=== PATIENT | male | born 1990 | race Caucasian/White ===

== ENCOUNTER 2017-01-11 19:04 | Emergency (ER) | payer MEDICAID ==
[~2017-01-11] VITALS: Ht 182.9 cm; Wt 81.8 kg
[~2017-01-11 19:04] MED LIST: NOMEDS XX; PREDNISONE 20MG20 MG PO; TYLENOL W/CODEI1 TA2 PO
--- OUTSIDE RECORDS SUMMARY | 2017-01-11 19:10 | External Medical Summary Rpt | CCD ---
Author Author , BRIGID CARTER Address Unknown Phone [email or web address] Purpose Continuity of Care Document - 04-25-2016 through 2016 Medications Na ND Rx Da Fi Fi Am Da Di Ph RX Ph St me C No te ll ll ou ys ag ar # ys at rm s nt no ma ic us Or Da si cy ia de te s n re d HY 53 01 02 [address] 74 -1 -0 .0 00 ME ti OC 60 1- 3- 00 02 TO ve OD 14 20 20 01 WN ON 50 17 17 25 E- 1 76 PH IB AR UP MA RO CY FE N OF 7. 5- CY 20 NT 0 HI AN A
--- OUTSIDE RECORDS SUMMARY | 2017-01-11 19:10 | External Medical Summary Rpt | CCD ---
Author Author , BRIGID CARTER Address Unknown Phone [email or web address] Purpose Continuity of Care Document - 04-25-2016 [...]
--- OUTSIDE RECORDS SUMMARY | 2017-01-11 19:11 | External Medical Summary Rpt | CCD ---
Author Author , RAUL CARTRE Address Unknown Phone [email or web address] Immunization Name Date Rout CVX Reac Dose Comm Prov Is Faci e tion ent ider Refu lity Give sed n Hep 03-0 43 999 Hist H159 No H159 B, 6-20 oric A A adul 14 al t Info rmat ion - Sour ce Unsp ecif ied Hep 01-2 43 999 Hist H159 No H159 B, 3-20 oric A A adul 14 al t Info rmat ion - Sour ce Unsp ecif ied Hep 11-2 8 999 Hist H157 No H157 B, 5-20 oric ped/ 03 al adol Info rmat ion - Sour ce Unsp ecif ied Hep 09-1 8 999 Hist H157 No H157 B, 6-20 oric ped/ 03 al adol Info rmat ion - Sour ce Unsp ecif ied Td 09-1 9 999 Hist H157 No H157 (layne 6-20 oric lt), 03 al Info adso rmat rbed ion - Sour ce Unsp ecif ied Hep 08-1 8 999 Hist H157 No H157 B, -20 oric ped/ 03 al adol Info rmat ion - Sour ce Unsp ecif ied MMR 08-1 3 999 Hist H157 No H157 -20 oric 03 al Info rmat ion - Sour ce Unsp ecif ied
--- OUTSIDE RECORDS SUMMARY | 2017-01-11 19:11 | External Medical Summary Rpt ---
Author Author RAUL Echevarria, RAUL [employer] Address Unknown Phone Unavailable
--- OUTSIDE RECORDS SUMMARY | 2017-01-11 19:11 | External Medical Summary Rpt | CCD ---
Author Author , RAUL CARTER Address Unknown Phone [email or web address] Immunization Name Date Rout CVX Reac Dose [...]
--- OUTSIDE RECORDS SUMMARY | 2017-01-11 19:11 | External Medical Summary Rpt ---
Author Author RAUL Echevarria, RAUL [facility] [employer] Address Unknown Phone Unavailable
--- NOTE | 2017-01-11 19:30 | Urgent Treatment Center Report ---
History of Present Issue Date/Time Seen by Provider 01/11/171913 Visit Reason Pt arrived:Walked Presenting Problem:PT STATES HE HAS BEEN ITCHING ALL OVER FOR A WK NOW AND BELIEVES IT MIGHT BE FROM HAULING WALNUTS Location if Accident: Onset of symptoms date/time:/ or onset unknown for:MEDICAL HX UNKNOWN Have you (or family members/close friends) recently traveled outside the [place]? N If Yes, where/when: Have you had exposure to infectious disease within the past month? TB? Other? Specify: c/o itching all over but primarily bilateral hand/arms the worse x around one week. Initially noticed a "blistery type" rash and thought poison clark but that resolved w/ applying bactin. No improvement in itching with frequent benadryl PO. Symptoms didn't start until after patient started collecting and hauling walnuts. Has never done this before. Denies any other possibly new contacts at home, new foods, new medications. No throat swelling, difficulty breathing. "just itching". pt has not been wearing gloves or long sleeves and tawanda hands and arms are stained from walnuts. Source patient Exam Limitations no limitations ALLERGIES Coded Allergies: NO KNOWN ALLERGIES (08/04/13) Home Medications Active Scripts APAP 300MG W/CODEINE 30MG (Acetaminophen-Cod #3 Tablet) 1 TAB PO Q4HP PRN pain #10 TAB Prov: 11/13/13 History Medical History General Angina: No [place]: No Hypertension? No Hyperlipidemia? No CHF? No COPD? No Asthma? No Anemia? No GERD? No Gastric ulcers? No GI Bleed? No Hernia? No Thyroid Problems? No Hypothyroidism? No CVA? No Seizures? No Diabetes? No UTI? No Stones? No BPH? No GB Disease: No Asplenia? No Hepatitis? No Sickle Cell Disease? No Arthritis? No Migraines? No Cataracts? No Glaucoma? No MRSA? Yes HIV? No TB? No Depression? No Cancer? No More? No Immunization HX DT/Tetanus 2008 Surgical Hx Previous Surgery?Y FACIAL ABSCESS Social History Smoking Hx Smoker: Current Every Day Smoker Tobacco: Yes Type Cigarettes Packs/day < 1 Pack Alcohol Alcohol: No Review of Systems All Other Systems Reviewed and Negative (as appropriate for CC) Constitutional denies chills, denies fever, denies malaise Eyes denies inflammation, denies other (itching) ENT see HPI. denies: throat pain. Respiratory see HPI, denies wheezing Gastrointestinal denies nausea Musculoskeletal denies joint pain Skin see HPI Psychiatric/Neurological denies headache Physical Exam Vital Signs Vital Signs Date Time Temp Pulse Resp B/P Pulse O2 O2 Flow FiO2 Ox Delivery Rate 01/11 1913 98.0 66 20 118/73 99 General Appearance normal appearance, no apparent distress, appears filthy, skin and clothes stained from walnuts Ear, Nose, Throat normal pharynx Respiratory Status No: respiratory distress. Cardiovascular no peripheral edema Neurologic alert Skin warm/dry, bilateral hands and tawanda UEs stained dark brown, no obvious rash but exam of skin complication by staining Medical Decision Making LABS/Meds/Orders Pt receiving controlled substance in ED? No Results/Orders Current Medication Orders Sig/Hrys Start time Last Medication Dose Route Stop Time Status Admin Triamcinolone 40 MG ONCE ONE 01/11 1930 UNi 01/11 Acetonide IM 01/11 Departure Departure Time of Disposition 1926 Disposition DC Home or Self Care(routine) Clinical Impression Primary Impression: Contact dermatitis Qualifiers: Contact dermatitis type: allergic Contact dermatitis trigger: other trigger Qualified Code: L23.89 - Allergic contact dermatitis due to other agents Condition STABLE Referrals NO REFERRAL follow up with primary care for new, worsening or persistant symptoms Patient Instructions DI for Contact Dermatitis Additional Instructions * Kenalog Injection: you received an injection of kenalog today. This is a long acting steroid as we discussed. This should cover the life span of this exposure to poison clark but be sure to follow up for new or worsening symptoms. If you have surgery any time in the next 30 days, try to remember to tell them you received an injection of kenalog 40 mg today, 01/11/17. Remember as we discussed, steroids can cause you to feel flushed, jittery, difficult to sleep, energetic, higher blood pressure. * cool showers or compresses calms the itching. Oatmeal baths may help as well. * If you need additional medication to help with the itching, zyrtec in the morning and if necessary, benadryl at bedtime. Just remember benadryl causes drowsiness. * Cortisone cream may also help. Discharge Counseling Counseled pt/family regarding diagnosis, medications/RX, home care, follow up needs at 1929
[2017-01-11 19:52] VITALS: BP 120/88
== END 2017-01-11 19:53 | disposition home or self-care (01) ==
LOC: UTC 19:04
DX: L23.89 Allergic contact dermatitis due to other agents (principal)